=== PATIENT | male | born 2000 | race Caucasian/White ===

== ENCOUNTER 2020-01-19 01:19 | Emergency (ER) | payer OTHER ==
[~2020-01-19] VITALS: Ht 172.7 cm; Wt 84.1 kg
[2020-01-19] MEDS ORDERED: CEPHALEXIN500 M1 PO (02:02)
[2020-01-19 02:09] VITALS: BP 111/69; PULSE 74; TEMP 98.1
== END 2020-01-19 02:40 | disposition home or self-care (01) ==
LOC: COL.ER 01:19
DX: S81.811A Laceration without foreign body, right lower leg, initial encounter (principal); W26.9XXA Contact with unspecified sharp object(s), initial encounter; Y92.009 Unspecified place in unspecified non-institutional (private) residence as the place of occurrence of the external cause